=== PATIENT | female | born 1990 | race American Indian/Alaskan Native ===

== ENCOUNTER 2016-09-20 09:35 | Emergency (ER) | payer SELFPAY ==
[2016-09-20 09:49] VITALS: BP 174/110
[2016-09-20] MEDS ORDERED: MOTRIN PO ONE (11:15)
--- NOTE | 2016-09-20 11:19 | Emergency Department Report ---
ED Back Pain/Injury HPI - General Chief Complaint: Extremity Injury, Lower Stated Complaint: BACK/ANKLE PAIN Time Seen by Provider: 09/20/16 11:14 Source: patient Limitations: No Limitations - History of Present Illness Initial Comments: 25-year-old female who started job and is recently been on her feet for approximately 20 hours a day. She complains of back pain and pain in her ankles. She's noticed some mild swelling in the legs. No obvious trauma. She is able to ambulate without difficulty. MD Complaint: back pain -: Gradual Similar Symptoms Previously: No Place: work Radiation: none Quality: aching Consistency: constant Improves With: other (rest) Worsens With: movement Associated Symptoms: denies: weakness, numbness - Related Data Previous Rx's Medication Instructions Recorded Last Taken Type Gabapentin [Neurontin] 100 mg PO Q8H #90 capsule 05/15/13 Unknown Rx Insulin NPH/Regular [NovoLIN 70/30] 18 unit SQ BIDDIAB #1 vial 05/15/13 Rx Diphenoxylate/Atropine [Lomotil] 1 tab PO Q6H PRN #20 tablet 03/28/14 Unknown Rx Promethazine [Phenergan SUPPOS] 25 mg DE Q6HR PRN #10 supp.rect 03/28/14 Unknown Rx Promethazine [Phenergan] 25 mg PO Q6H PRN #20 tablet 03/28/14 Unknown Rx Bisacodyl [Dulcolax suppos] 10 mg DE QDAY PRN #30 supp.rect 03/24/15 Unknown Rx Levofloxacin [Levaquin TAB] 500 mg PO Q24HR #7 tab 03/24/15 Unknown Rx Metoprolol [Lopressor TAB] 25 mg PO BID #60 tablet 03/24/15 Unknown Rx Pantoprazole [Protonix TAB] 40 mg PO QDAY #30 tablet 03/24/15 Unknown Rx Sucralfate [Carafate] 1 gm PO ACHS #1 oral.liqd 03/24/15 Unknown Rx Ibuprofen [Motrin 600 MG tab] 600 mg PO Q8H PRN #30 tablet 09/20/16 Unknown Rx Allergies Allergy/AdvReac Type Severity Reaction Status Date / Time oxycodone HCl [From Percocet] Allergy Shortness Verified 09/20/16 09:42 of Breath ED Review of Systems ROS: Stated complaint: BACK/ANKLE PAIN Other details as noted in HPI Respiratory: denies: cough, orthopnea, shortness of breath Cardiovascular: denies: chest pain, palpitations Gastrointestinal: denies: abdominal pain, nausea, vomiting Musculoskeletal: back pain, other (bilateral leg swelling). denies: joint swelling Neurological: denies: headache, weakness Psychiatric: denies: anxiety, depression ED Past Medical Hx - Past Medical History Hx Hypertension: Yes Hx Congestive Heart Failure: No Hx Diabetes: Yes Hx Deep Vein Thrombosis: No Hx GERD: Yes Hx Liver Disease: No Hx Renal Disease: No Hx Seizures: No Hx Kidney Stones: No Hx Asthma: No Hx COPD: No Hx Dementia: No Hx HIV: No Additional medical history: heart murmur - Surgical History Past Surgical History?: No Hx Pacemaker: No Hx Internal Defibrillator: No - Family History Family history: no significant - Social History Smoking Status: Never Smoker Substance Use Type: Alcohol - Medications Home Medications: Home Medications Medication Instructions Recorded Confirmed Last Taken Type Gabapentin [Neurontin] 100 mg PO Q8H #90 capsule 05/15/13 02/20/14 Unknown Rx Insulin NPH/Regular [NovoLIN 70/30] 18 unit SQ BIDDIAB #1 vial 05/15/1302/19/14 Rx Diphenoxylate/Atropine [Lomotil] 1 tab PO Q6H PRN #20 tablet 03/28/14 Unknown Rx Promethazine [Phenergan SUPPOS] 25 mg DE Q6HR PRN #10 supp.rect 03/28/14 Unknown Rx Promethazine [Phenergan] 25 mg PO Q6H PRN #20 tablet 03/28/14 Unknown Rx Bisacodyl [Dulcolax suppos] 10 mg DE QDAY PRN #30 supp.rect 03/24/15 Unknown Rx Levofloxacin [Levaquin TAB] 500 mg PO Q24HR #7 tab 03/24/15 Unknown Rx Metoprolol [Lopressor TAB] 25 mg PO BID #60 tablet 03/24/15 Unknown Rx Pantoprazole [Protonix TAB] 40 mg PO QDAY #30 tablet 03/24/15 Unknown Rx Sucralfate [Carafate] 1 gm PO ACHS #1 oral.liqd 03/24/15 Unknown Rx Ibuprofen [Motrin 600 MG tab] 600 mg PO Q8H PRN #30 tablet 09/20/16 Unknown Rx ED Physical Exam - General Limitations: No Limitations - Eye Eye exam: Present: normal appearance. Absent: scleral icterus - ENT ENT exam: Present: mucous membranes moist - Neck Neck exam: Absent: lymphadenopathy - Respiratory Respiratory exam: Present: normal lung sounds bilaterally. Absent: respiratory distress - Cardiovascular Cardiovascular Exam: Present: regular rate, normal rhythm - GI/Abdominal GI/Abdominal exam: Present: soft. Absent: distended - Extremities Exam Extremities exam: Present: normal inspection, full ROM, pedal edema (1+) - Back Exam Back exam: Present: normal inspection, full ROM. Absent: tenderness - Neurological Exam Neurological exam: Present: alert, oriented X3 ED Course Vital Signs 09/20/16 09:45 Temperature 98.7 F Pulse Rate 83 Respiratory 17 Rate Blood Pressure 174/110 O2 Sat by Pulse 100 Oximetry ED Medical Decision Making - Medical Decision Making Patient with back pain and leg swelling likely due to prolonged time on her feet. Plan the patient down from work and will discharge with Tylenol and ibuprofen. Critical care attestation.: If time is entered above; I have spent that time in minutes in the direct care of this critically ill patient, excluding procedure time. ED Disposition Clinical Impression: Back pain Disposition: DC-01 TO HOME OR SELFCARE Is pt being admited?: No Condition: Stable Prescriptions: Ibuprofen [Motrin 600 MG tab] 600 mg PO Q8H PRN #30 tablet PRN Reason: Pain Referrals: PRIMARY CARE, [Primary Care Provider] - 3-5 Days Forms: Work/School Release Form
== END 2016-09-20 11:26 | disposition home or self-care (01) ==
LOC: ED 09:35
DX: M54.9 Dorsalgia, unspecified (principal); E11.9 Type 2 diabetes mellitus without complications; Z88.8 Allergy status to other drugs, medicaments and biological substances
CPT/HCPCS: 99282